=== PATIENT | female | born 1975 | race African-American/Black ===

== ENCOUNTER 2019-06-09 11:23 | Inpatient (IN) | payer OTHER ==
[~2019-06-09] VITALS: Ht 167.6 cm; Wt 68.0 kg
[~2019-06-09 11:23] MED LIST: AMBIEN 5 MG TABL5 M1 PO; DIAZEPAM 10 MG10 M2 OR; DILAUDID 2 MG TA2 MG PO; DOXEPIN 10 MG C10 MG PO; ENOXAPARIN60 MG/0.1 SUBQ; IMITREX 25 MG T25 M1 PO; LASIX 20 MG TAB20 MG PO; OXYCONTIN20 M1 PO; VALIUM5 MG PO; ZANAFLEX4 MG PO
[2019-06-09 11:24] VITALS: BP 112/75
[2019-06-09 12:01] LABS: BASOPHILS 1.2 % (0.0-2.0); EOSINOPHILS 3.2 % (0.0-3.0); HEMATOCRIT 35.1 % (37.0-47.0); HEMOGLOBIN 12.1 gm/dL (12.0-15.0); LYMPHOCYTES 44.5 % (24.0-44.0); MCH 29.3 pg (26.0-34.0); MCHC 34.3 g/dL (28.0-37.0); MCV 85.4 fL (80.0-100.0); MONOCYTES 5.6 % (1.0-8.0); PLATELET COUNT 308 thou/uL (150-400); POLYS 45.5 % (36.0-66.0); RBC 4.11 mil/uL (4.20-5.00); RDW 15.1 % (10.5-14.5); WBC 4.3 thou/uL (4.0-11.0)
[2019-06-09 12:25] LABS: ALBUMIN 4.2 g/dL (3.4-5.0); CALCIUM 9.1 mg/dL (8.5-10.1); TOTAL BILIRUBIN 0.4 mg/dL (<0.1-1.0); TOTAL PROTEIN 8.3 g/dL (6.4-8.2)
[2019-06-09 12:28] LABS: POTASSIUM 2.9 mmol/L (3.5-5.1)
[2019-06-09 12:46] LABS: URINE BILIRUBIN NEGATIVE (Negative); URINE BLOOD TRACE (Negative); URINE CLARITY SL CLOUDY; URINE COLOR YELLOW; URINE GLUCOSE-RANDOM* NEGATIVE (Negative); URINE KETONES NEGATIVE (Negative); URINE LEUKOCYTES NEGATIVE (Negative); URINE NITRITE NEGATIVE (Negative); URINE PROTEIN (DIPSTICK) 1+ (Negative); URINE SPECIFIC GRAVITY 1.025 (1.005-1.035); URINE UROBILINOGEN 0.2 E.U./dl (0.2-1.0)
[2019-06-09 12:55] LABS: BACTERIA 1-9 Few /HPF (None Seen); CASTS None Seen /LPF (None Seen); CRYSTALS None Seen /LPF (None Seen); SQUAMOUS >10 Many /LPF (0-3); URINE RBC 0-2 Rare /HPF (0-2); URINE WBC 6-15 Few /HPF (0-5)
[2019-06-09 14:49] LABS: AMP/METHAMP Negative (Negative); BARBITURATES Negative (Negative); BENZODIAZEPINES POSITIVE (Negative); COCAINE Negative (Negative); METHADONE Negative (Negative); OPIATES POSITIVE (Negative); PCP Negative (Negative)
[2019-06-09 16:15] VITALS: BP 100/55
[2019-06-09 16:34] VITALS: BP 100/55
--- NOTE | 2019-06-09 17:28 | NUR ---
ADM PT CAME IN FROM ER. PT ORIENTED TO ROOM. ISO CDIFF INITIATED. PT HAVING NAUSEA, LOOSEE GREENISH STOOL. WILL CONTINUE TO MONITOR.
[2019-06-09] MEDS ORDERED: RESTORIL15 MG PO (18:22)
[2019-06-09] MEDS ORDERED: OMEPRAZOLE 20 M20 M1 PO (18:23)
[2019-06-09 22:05] VITALS: BP 108/72
--- NOTE | 2019-06-10 05:02 | NUR ---
progress pt not progressing, continues to have bouts of emesis and watery diarrhea. emesis is clear watery fluid and stools are watery clear with a greenish color. unable to tolerate prep. allergic to most antiemetics has po phenergran but was afraid to take it. she did take it but vomited it right back up. taking iv morphine with slight effect continues to rate pain a 7 to 10. unable to tolerate po potassium Analy ARCHER contacted and added 4o meq's of kcl to her ivf's. infusing without difficulty. 72 hour stool collection has begun. continue poc.
[2019-06-10 05:19] LABS: ABSOLUTE NEUTROPHILS 4.7 thou/uL (1.4-8.2); BASOPHILS 0.1 % (0.0-2.0); HEMATOCRIT 30.2 % (37.0-47.0); LYMPHOCYTES 11.5 % (24.0-44.0); MCH 28.9 pg (26.0-34.0); MCHC 33.2 g/dL (28.0-37.0); MCV 86.9 fL (80.0-100.0); MONOCYTES 2.3 % (1.0-8.0); PLATELET COUNT 242 thou/uL (150-400); POLYS 86.1 % (36.0-66.0); RBC 3.48 mil/uL (4.20-5.00); WBC 5.4 thou/uL (4.0-11.0)
[2019-06-10 05:50] LABS: ALBUMIN 3.3 g/dL (3.4-5.0); CALCIUM 8.3 mg/dL (8.5-10.1); CREATININE 0.7 mg/dL (0.6-1.0); MAGNESIUM 1.7 mg/dL (1.8-2.4); TOTAL BILIRUBIN 0.3 mg/dL (<0.1-1.0); TOTAL PROTEIN 6.8 g/dL (6.4-8.2)
[2019-06-10 05:52] LABS: POTASSIUM 4.5 mmol/L (3.5-5.1)
[2019-06-10 08:11] VITALS: BP 119/58
--- NOTE | 2019-06-10 12:03 | NUR ---
Received awake on bed. On nothing per orem- pt informed and aware; with mouth swabs. On room air. On 72 hour stool collection- with container at bedside, ice refilled frequently. PT with NS + 40meqs KCL at 125cc/hr, infusing wellat L Wrist. Pt for EGD + Colonoscopy today- a/w time, with consent signed. GI lab called, report given- will call back re: time of patient's procedure since she is on isolation- with possibility to do her procedure in PM- pt informed. Complained of pain, due PRN pain meds given as prescribed. Maintained on isolation- ?Cdiff. Pt paraplegic, assisted in ADLs. Pt turned regularly. Able to use bedpan to pass urine and open bowels. As per report from shift commander, pt with episodes of emesis- Approx 200ml- Dr Tripp informed. Pt requested if Protonix could be shifted to IV instead of oral as she may not be able to keep it in due to nauseated feeling- Dr Tripp informed- to call Gi; Dr Benitez informed, may shift to IV. Vital signs stable.
[2019-06-10 17:56] VITALS: BP 107/64
[2019-06-10 19:19] VITALS: BP 99/56
[2019-06-11 00:19] VITALS: BP 96/52
[2019-06-11 04:43] VITALS: BP 99/64
--- NOTE | 2019-06-11 07:51 | NUR ---
progress pt a/o x4 vss, afebrile skin warm dry intact able to repositions self easily lifts up to have bedpan placed vooiding qs and had a few small clear liquid stools, 72 hour collection continues container on ice in br. continues to request morphine for pain refuses phenergran d/t nausea. ivf;s with potassium infusing without difficulty continue poc.
[2019-06-11 08:00] VITALS: BP 98/58
[2019-06-11 15:00] VITALS: BP 130/71
[2019-06-11 19:33] VITALS: BP 95/56
--- NOTE | 2019-06-11 19:45 | NUR ---
ASSUMED CARE OF PATIENT AT 0715, PATIENT ALERT AND ORIENTED X 4. PATIENT ON BED, DUE TO SPINAL CORD INJURY. PATIENT VOMITTED SMALL AMT OF CLEAR SPUTUM, PATIENT HAS ALERGIES TO ALL NAUSEA MEDS, RECEIVED PROTONIX IN AM. PATIENT HAS LEFT UPPER ARM IV WITH NS WITH 40MEQ OF KCL AT 125CC/HR. PATIENT HAS HAD 5 LOOSE STOOLS, COLLECTION OF STOOLS X 72 HRS IN CONTAINER. VSS, WILL CONTINUE TO MONITOR.
--- NOTE | 2019-06-12 04:04 | NUR ---
PROGRESS PT NOT PROGRESSING CONTINUES TO RATE PAIN AN 8 TO 10 TAKING 2 MG MORPHINE Q4HRS, ORDER FOR LORAZEPAM OBTAINED TO TRY THAT FOR NAUSEA PT RESTED 2 HOURS AFTER STATED IT ONLY HELPED FOR A SHORT TIME. MORPHINE CHANGED TO Q6H, OXYCODONE ORDERED BUT PT UNABLE TO KEEP DOWN. WOKE UP CRYING AND MOANING AT 330 AND BECAME QUITE UPSET TO HEAR OF HER MEDICATION CHANGE. I EXPLAINED TO HER THAT WE NEED TO TRY AND FOLLOW THE DOCTORS ORDERS TO SEE IF ANY RELIEF IS OBTAINED AND IF THINGS DIDN'T IMPROVE WE COULD CALL PHYSICIAN FOR MORE INSTRUCTIONS. CONTINUE POC
[2019-06-12 07:46] VITALS: BP 97/60
[2019-06-12 14:52] LABS: HEMATOCRIT 34.7 % (37.0-47.0); HEMOGLOBIN 11.6 gm/dL (12.0-15.0); MCH 28.8 pg (26.0-34.0); MCHC 33.4 g/dL (28.0-37.0); MCV 86.2 fL (80.0-100.0); RBC 4.03 mil/uL (4.20-5.00); RDW 14.6 % (10.5-14.5); WBC 4.6 thou/uL (4.0-11.0)
[2019-06-12 15:11] LABS: ALBUMIN 3.8 g/dL (3.4-5.0); CREATININE 0.7 mg/dL (0.6-1.0); MAGNESIUM 1.7 mg/dL (1.8-2.4); POTASSIUM 4.1 mmol/L (3.5-5.1); TOTAL BILIRUBIN 0.5 mg/dL (<0.1-1.0); TOTAL PROTEIN 7.6 g/dL (6.4-8.2)
[2019-06-12 15:31] VITALS: BP 96/63
--- NOTE | 2019-06-12 17:58 | NUR ---
ASSUMED CARE OF PATIENT AT 0715, PATIENT ALERT AND ORIENTED X 4. PATIENT ON BEDREST, DUE TO SPINAL CORD INJURY. PATIENT CONTINUES TO HAVE PAIN AND NAUSEA, SMALL AMT OF CLEAR EMESIS TODAY. PATIENT FEELS HER ABDOMEN IS MORE DISTENDED TODAY, BUT IS TENDER TO TOUCH. PAGED DR KAUR IN REGARD TO PAIN MEDS, WHICH WERE CHANGED TO EVERY 6 HRS/PRN. DR KAUR ORDERED LABS AND KUB DUE TO ABDOMEN PAIN. PATIENT RECEIVED LORAZEPAM 1 MG IV X 1 THIS SHIFT. MORPHINE 2 MG IV GIVEN X 2 THIS SHIFT, WITH NO RELIEF STATES THE PATIENT. PATIENT CONTINUES TO NOT EAT OR DRINK LIQUIDS, ONLY ICE WATER WITH SWABS. PATIENT HAS LEFT UPPER ARM IV WITH IV FLUIDS AT 125CC/HR. PATIENT CONTINUES TO HAVE LOOSE STOOLS, AND WE ARE STILL COLLECTING STOOL SPECIMEN IN CONTAINER. WILL CONTINUE TO MONITOR.
[2019-06-12 19:35] VITALS: BP 95/55
[2019-06-13 05:55] LABS: CALCIUM 8.9 mg/dL (8.5-10.1); CREATININE 0.7 mg/dL (0.6-1.0); MAGNESIUM 1.8 mg/dL (1.8-2.4); POTASSIUM 4.6 mmol/L (3.5-5.1)
[2019-06-13 05:58] LABS: HEMATOCRIT 32.2 % (37.0-47.0); HEMOGLOBIN 10.8 gm/dL (12.0-15.0); MCH 29.1 pg (26.0-34.0); MCHC 33.6 g/dL (28.0-37.0); MCV 86.5 fL (80.0-100.0); RBC 3.72 mil/uL (4.20-5.00); RDW 14.3 % (10.5-14.5); WBC 4.7 thou/uL (4.0-11.0)
[2019-06-13 07:41] VITALS: BP 99/60
--- NOTE | 2019-06-13 08:57 | NUR ---
PROGRESS PT CONTINUES TO HAVE NAUSEA AND VOMITING EMESIS IS WATERY AND CLEAR NO STOMACH CONTENTS NOTED, PT HAD A PIECE OF WATERMELON AND VOMITED IT UP IT WAS INTACT LOOKED UNCHEWEDIN SMALL SQUARE SHAPES. CONTINUES TO RATE PAIN AN 8 TO 10 OR HIGHER TAKING MORPHINE Q6HRS REFUSES ORAL MEDS D/T NAUSEA AND VOMITING. STILL HAVING FREQUENT WATERY YELLOW STOOLS STILL COLLECTING FOR THE 72 HOUR STOOL COLLECTION LAB TEST. PT ABLE TO REPOSITION SELF AND RAISE HIPS TO ALLOW BEDPAN PLACEMENT. REPORTS AREAS OF NUMBNESS ON BUTTOCKS AND LEGS BUT HAS GOOD MUSCLE TONE AND MOVEMENT. SKIN C/D/I ANUS IS SORE FROM STOOLING BARRIER CREAM APPLIED. IVF'S CONTINUE PT VOIDING QS. NOT PROGRESSING TOWARDS GOALS CONTINUE TO MONITOR.
--- NOTE | 2019-06-13 12:30 | NUR ---
met with patient and discussed dc planning ?hh care. Patient reports para and uses wc at home. All needs on one level. Her children ages 20/s to 11 years old home for summer and assist with needs. She reports when they return to school she can assist herself with adls and they have a system. Patient anticipates no dc needs. Denies need for HH care. Anticipate home no needs. She does not want MRI that may be orderded as she is to f/u with outpatient pain clinic who already has outpatient MRI ordered. Updated hospitalist.
[2019-06-13 14:52] VITALS: BP 104/67
[2019-06-13 16:23] VITALS: BP 104/67
[2019-06-13] MEDS ORDERED: LEVSIN0.125 MG PO (16:27)
--- NOTE | 2019-06-13 22:35 | NUR ---
PT LEFT THE FLOOR AROUND 2039. NO S/S ACUTE DISTRESS NOTED OR REPORTED UPON DEPARTURE. FAMILY AT BEDSIDE AND P/U VIA PRIVATE VEHICLE.
--- NOTE | 2019-06-14 16:06 | PATH ---
[facility] [place] [address] PATHOLOGY RPT PROCEDURE Name: JUAN WALL Room #: 453-P DIS IN M.R.#: [id number] ������������������ Admission: 06/09/19 ������������������ Date of : 75 Discharge: 06/13/19 Report #: [id number] Path Case #: [id number] [facility] Accession Number: [id number] . 01 Material submitted: . PART A: small bowel - SMALL BOWEL BX PART B: colon - R SIDED COLON BIOPSIES. Modifiers: right PART C: colon - L SIDED COLON BIOPSIES. Modifiers: left . 01 Clinical history: . Nausea, vomiting, abdominal pain, diarrhea, normal EGD, normal colon, hemorrhoids A. Rule out celiac B / C. Rule out microscopic infection or inflammatory colitis . 02 Diagnosis: A. Small bowel mucosa, rule out celiac, endoscopic biopsy: - No diagnostic abnormalities present. - Negative for villous blunting or increase in intraepithelial lymphocytes. . B. Large intestinal mucosa, right sided colon, rule out microscopic colitis, endoscopic biopsy: - Nonspecific changes. - Rare pigmented macrophages within lamina propria, compatible with melanosis coli. - Focal acute cryptitis present, see comment. - Negative for microscopic colitis. - Negative for dysplasia. . C. Large intestinal mucosa, left sided colon, rule out microscopic colitis, endoscopic biopsy: - Reactive/regenerative hyperplastic changes. - Negative for active cryptitis. - Negative for microscopic colitis. - Negative for dysplasia. (IUV:pit; 06/14/2019) QTP/06/14/2019 . 02 Comment: Sections of the colonic mucosa designated "right sided colon" show focal cryptitis, and a moderately cellular lamina propria composed predominantly of lymphocytes and plasma cells and occasional eosinophils. Surface ulceration is not identified. There are no crypt abscesses, granulomas or viral inclusions. The process affects all the fragments with a similar intensity. Given the description, the differential diagnosis includes focal acute self-limited episode of colitis, medication induced colitis [address] [address] PATHOLOGY RPT PROCEDURE Name: JUAN WALL Room #: 453-P [facility] IN M.R.#: [id number] ������������������ Admission: 06/09/19 ������������������ Date of : 75 Discharge: 06/13/19 Report #: [id number] Path Case #: [id number] including laxative use, as well as acute focal diverticulitis. Please correlate with clinical as well as endoscopic findings. (IUV:pit; 06/14/2019) . 02 Electronically signed: . Reina Corea MD, Pathologist NPI- [id number] . 01 Gross description: . A. The specimen is received in formalin, labeled "[place], BX of small bowel, rule out celiac", are few, irregular fragments of gonzales soft tissue measuring 0.5 x 0.5 x 0.2 cm in aggregate. Entirely submitted in A1. . B. The specimen is received in formalin, labeled "Saulsberry, Yahirisha, right side colon biopsies", are few, irregular fragments of gonzales soft tissue measuring 0.7 x 0.5 x 0.1 cm in aggregate. Entirely submitted in B1. . C. The specimen is received in formalin, labeled "Saulsberry, Shanisha, left sided colon biopsies", are few, irregular fragments of gonzales soft tissue measuring 0.5 x 0.5 x 0.1 cm in aggregate. Entirely submitted in C1. ([facility]; 06/13/2019) SHS/SHS . 02 Pathologist provided ICD-10: R11.2, R10.9, R19.7, K64.9 . 02 CPT . 096437, 298257, 106533 Specimen Comment: A courtesy copy of this report has been sent to Specimen Comment: [phone], . Specimen Comment: Report sent to / DR KAUR Performed at: [address], [place], [place] [id number] MD Markus Haile MD Phone: [phone] Performed at: [address] [facility] [id number] MD Reina Corea MD Phone: [phone]
== END 2019-06-13 20:40 | disposition home or self-care (01) | DRG 392 ==
LOC: ER 11:23 → EROBS 15:16 → 4W 15:16
PROVIDERS: Emergency Medicine; Nurse Practitioner; Physician Assistant; ADMIT Internal Medicine
DX: A08.4 Viral intestinal infection, unspecified (principal); K92.1 Melena; K86.1 Other chronic pancreatitis; G43.909 Migraine, unspecified, not intractable, without status migrainosus; T14.8XXA Other injury of unspecified body region, initial encounter; R10.9 Unspecified abdominal pain; X58.XXXA Exposure to other specified factors, initial encounter; E86.0 Dehydration; K59.03 Drug induced constipation; E87.6 Hypokalemia; T40.2X5A Adverse effect of other opioids, initial encounter; G89.29 Other chronic pain; K64.8 Other hemorrhoids; E66.9 Obesity, unspecified; Z88.8 Allergy status to other drugs, medicaments and biological substances; Z88.5 Allergy status to narcotic agent; Z88.4 Allergy status to anesthetic agent; Z90.49 Acquired absence of other specified parts of digestive tract; Y93.89 Activity, other specified; Z79.891 Long term (current) use of opiate analgesic; Y92.89 Other specified places as the place of occurrence of the external cause; Y99.8 Other external cause status; Z68.24 Body mass index [BMI] 24.0-24.9, adult; Z79.899 Other long term (current) drug therapy
CPT/HCPCS: 10040; 62110; 62900; 70005

== ENCOUNTER 2020-01-12 10:26 | Day surgery (SDC) | payer OTHER ==
[~2020-01-12 10:26] MED LIST changes: +LEVSIN0.125 MG PO; +OMEPRAZOLE 20 M20 M1 PO; +RESTORIL15 MG PO
== END 2020-01-12 12:35 | disposition home or self-care (01) ==
LOC: TBA 10:26 → OR 10:26 → TBA 10:45 → OR 12:35
DX: G89.4 Chronic pain syndrome (principal); M54.9 Dorsalgia, unspecified; M79.4 Hypertrophy of (infrapatellar) fat pad; F41.9 Anxiety disorder, unspecified; Z98.890 Other specified postprocedural states; Z90.49 Acquired absence of other specified parts of digestive tract; Z88.8 Allergy status to other drugs, medicaments and biological substances; Z79.899 Other long term (current) drug therapy
CPT/HCPCS: 50010; 50101

== ENCOUNTER → 2020-04-12 | Day surgery (SDC) | payer OTHER ==
[~2020-04-12] VITALS: Ht 167.6 cm; Wt 60.8 kg
[~2020-04-12] MED LIST changes: +AMBIEN 10 MG TA10 MG PO; +BIOTIN5 MG PO; +DIAZEPAM 2MG TAB2 MG PO; +DILAUDID 4 MG TA4 M1 PO; +DIPHENHIST50 MG PO; +METHOCARBAMOL500 M2 PO; +NEXIUM40 MG PO; +OXYCONTIN15 MG PO; +RESTORIL30 MG PO; +ROBAXIN 750 MG750 MG PO; +SUPER THERAVIT1 EACH PO; +XYZAL5 MG PO
[2020-04-12 13:57] VITALS: BP 103/67
== END | disposition home or self-care (01) ==
LOC: OR 10:40
DX: G89.4 Chronic pain syndrome (principal); M79.2 Neuralgia and neuritis, unspecified; M54.9 Dorsalgia, unspecified; F41.9 Anxiety disorder, unspecified; K21.9 Gastro-esophageal reflux disease without esophagitis; D64.9 Anemia, unspecified; Z98.890 Other specified postprocedural states; Z87.19 Personal history of other diseases of the digestive system; Z79.899 Other long term (current) drug therapy; Z90.49 Acquired absence of other specified parts of digestive tract; Z11.59 Encounter for screening for other viral diseases
CPT/HCPCS: 50010; 50101; 50386; 50417; 56524; 56526; 56528; 57271; 57272; 62110; 62900; 70005

== ENCOUNTER 2020-04-15 14:54 | Inpatient (IN) | payer OTHER ==
[~2020-04-15] VITALS: Ht 167.6 cm; Wt 63.0 kg
--- NOTE | ~2020-04-15 | HC ---
[facility] [place] [address] CONSULTATION Name: JUAN THOMAS Room #: 457-P ADM IN M.R.#: [id number] Admission: 04/15/20 Attend Phys: Antonio Tabares MD Discharge: Date of : 75 Report #: [id number] THIS REPORT FOR: cc: FAM - Family physician unknown DANNA - Family physician unknown Ismael Dumas MD ~ CC: DANNA unknown Antonio Tabares DATE OF SERVICE: 04/17/2020 HISTORY OF PRESENT ILLNESS: This 44-year-old female patient was seen earlier today, which is technically yesterday now since it is past midnight. The patient's consultation was requested for headache. The patient has multiple other issues going on and I will strictly confine myself for the evaluation and management of her headache. She gives a pretty complex history, which is not always very clear. She said she started having a headache in her late teens or early 20s. They were described as migraine headache. The medication she remembers she took was Midrin. She also has been tried on multiple other medications. She continued to have headache. At one time, she was admitted to [facility]. She believes it was October of last year. She said extensive workup was done that time and that workup was unremarkable. I do not have any access to that workup. She tells me that they did not come up with any diagnosis. She continues to have headache. Headache is generalized. She is sitting there with a cloth on her eyes, covering her eyes. She said she is extremely photophobic. That makes the history taking and examination very difficult. When asked whether she has any anxiety, she indicates she has anxiety, but that is not the cause of her headache. It looks like she had a pain pump put in. She said sometimes she is able to move all 4 extremities, sometimes she is not able to, but this is going on for a long time. REVIEW OF SYSTEMS: A 14-point review of systems is positive for pain problems and extensive neurological examination according to her in October at [facility], which according to her, did not reveal any definite diagnosis. That was a relevant 14-point review of system. She also gives multiple other things like that she has a spinal cord injury. She had a sickle cell trait, history of PE, she has a filter. To Emergency Room physician, she told that she has a problem with headache, that it becomes worse when she sits up, but to me, she tells me it is not that much different because she has a severe headache all the time. This was a relevant 14-point review of system. PAST MEDICAL HISTORY: Positive for headache, which is longstanding. FAMILY HISTORY: Unremarkable. [facility] [address] [place] [address] CONSULTATION Name: JUAN THOMAS Room #: 457-P [facility] IN M.R.#: [id number] Admission: 04/15/20 Attend Phys: Antonio Tabares MD Discharge: Date of : 75 Report #: [id number] SOCIAL HISTORY: She does not use alcohol on a regular basis. PHYSICAL EXAMINATION: Her examination was difficult. She is complaining of lot of photophobia, but her speech is intact, but the best I can tell is she can move her eyes in all directions, but she does it in a very unusual way. When I try to examine her, she does give me a service worker helper, but she does it very poorly. Her cardiac examinations appear unremarkable. Respiratory examination appears to be stable. Her blood pressure is 115/76, respiration is 18, pulse is 90, temperature is 99.4. She says the situation about her lower extremity is about the same since her spinal cord injury. IMPRESSION: As far as headache is concerned, when you take the history, it is a longstanding problem. I reviewed her records. She does not have any imaging studies of the brain here. If she did not have it, she needs one. She did have a CT of the spine, which I suspect is to look for the position of the pain pump and any spinal fluid leak and does not look like they found any. I do not know if her pump is compatible with MRI or not. We need to talk to Dr. Loving in the morning. She does appear to have significant amount of psychological overlay, but that has been present for long time and we need to make sure she does not have any other pathology. RECOMMENDATIONS: I will suggest doing some imaging study of the brain. I will either suggest doing an MRI or a CT scan. I will talk to Dr. Loving in the morning to see if she has any of those studies done as an outpatient and if the pump is compatible with MRI. Otherwise, we can do the CT scan in this patient. We will try to get the record from [facility]. Main management will be to evaluate the patient for other pathology. If evaluation for spinal fluid leak is desired, that is pretty difficult thing to localize, but MRI will be a better test if spinal fluid leak is suspected and even that is not very sensitive. Thank you very much for this referral and we will follow this patient along with you and talk to other consultants in the morning. By: [id number] Ismael Dumas MD /nt
[~2020-04-15 14:54] MED LIST changes: -BIOTIN5 MG PO; -METHOCARBAMOL500 M2 PO; -SUPER THERAVIT1 EACH PO
[2020-04-15 14:57] VITALS: BP 110/67
[2020-04-15 16:47] LABS: ABSOLUTE NEUTROPHILS 4.5 thou/uL (1.4-8.2); BASOPHILS 0.7 % (0.0-2.0); EOSINOPHILS 2.5 % (0.0-3.0); HEMATOCRIT 32.2 % (37.0-47.0); LYMPHOCYTES 19.8 % (24.0-44.0); MCH 30.5 pg (26.0-34.0); MCHC 34.1 g/dL (28.0-37.0); MCV 89.5 fL (80.0-100.0); MONOCYTES 6.1 % (1.0-8.0); PLATELET COUNT 312 thou/uL (150-400); POLYS 70.9 % (36.0-66.0); WBC 6.3 thou/uL (4.0-11.0)
[2020-04-15 16:55] LABS: ANION GAP 3 mmol/L (7-16); BUN 8 mg/dL (7-18); CALCIUM 8.8 mg/dL (8.5-10.1); CHLORIDE 100 mmol/L (98-107); CO2 33 mmol/L (21-32); CREATININE 0.8 mg/dL (0.6-1.0); GLUCOSE 79 mg/dL (74-106); POTASSIUM 3.4 mmol/L (3.5-5.1); SODIUM 136 mmol/L (136-145)
[2020-04-15 17:05] LABS: ALBUMIN 3.3 g/dL (3.4-5.0); DIRECT BILIRUBIN < 0.1 mg/dL (<0.1-0.2); LIPASE 301 U/L (73-393); SGOT 11 U/L (15-37); SGPT 14 U/L (30-65); TOTAL BILIRUBIN 0.6 mg/dL (0.2-1.0); TOTAL PROTEIN 7.3 g/dL (6.4-8.2); TROPONIN-I <0.06 ng/mL (<0.06)
[2020-04-15 17:08] LABS: APTT 25.7 Seconds (24.5-32.8); PROTIME 10.2 Seconds (9.3-11.4)
--- NOTE | 2020-04-15 22:06 | NUR ---
ATTEMPTED TO CALL REPORT, NURSE NOT AVAILABLE
[2020-04-15 22:35] VITALS: BP 97/73
[2020-04-15 23:04] VITALS: BP 124/74
[2020-04-16] MEDS ORDERED: METHOCARBAMOL500 M2 PO (05:05)
[2020-04-16 05:30] LABS: HEMATOCRIT 25.7 % (37.0-47.0); MCH 30.6 pg (26.0-34.0); MCV 90.2 fL (80.0-100.0); RBC 2.85 mil/uL (4.20-5.00); RDW 14.7 % (10.5-14.5); WBC 4.9 thou/uL (4.0-11.0)
[2020-04-16 05:33] LABS: CALCIUM 7.9 mg/dL (8.5-10.1); CREATININE 0.6 mg/dL (0.6-1.0); POTASSIUM 3.3 mmol/L (3.5-5.1)
[2020-04-16 05:34] LABS: HEMOGLOBIN 8.7 gm/dL (12.0-15.0)
[2020-04-16] MEDS ORDERED: SUPER THERAVIT1 EACH PO (07:21)
[2020-04-16] MEDS ORDERED: BIOTIN5 MG PO (07:21)
[2020-04-16 08:06] VITALS: BP 91/63
--- NOTE | 2020-04-16 08:24 | EKG ---
[facility] [place] [address] ELECTROCARDIOGRAM REPORT Name: JUAN THOMAS Room #: 457-P ADM IN M.R.#: [id number] Admission: 04/15/20 Attend Phys: Tommie Mclaughlin MD Discharge: Date of : 75 Report #: [id number] THIS REPORT FOR: cc: FAM - Family physician unknown FAM - Family physician unknown Odilon Moe MD [facility] THIS REPORT FOR: //name// [facility] ED Test Date: 2020-04-15 Test Time: 15:01:35 Pat Name: JUAN THOMAS Department: Room: [facility] Gender: F Sticker Machine Operator: MAGDALENA : 1975 Requested By: Rafal Tong Order Number: [id number] MD: Odilon Moe Measurements Intervals [place] Rate: 112 P: 59 DE: 152 QRS: 17 QRSD: 77 T: 28 QT: 342 QTc: 467 Interpretive Statements Sinus tachycardia Nonspecific ST and T wave abnormality Compared to ECG 10/28/2007 12:48:28 ST and T wave abnormality is more pronounced Electronically Signed On 04-16-2020 8:22:29 CDT by Odilon Moe [email or web address] <ELECTRONICALLY SIGNED> By: Odilon Moe MD, [facility] 04/16/20 0822 1501 1501 Odilon Moe MD, [facility] /EPI
--- NOTE | 2020-04-16 10:56 | NUR ---
juanis consulted, chart review. juanis called pt in room she reported not feeling good talk with . juanis called sunny [phone] "on phone call, have to call back and i will be visiting later so can visit you in the room"/sunny, and he hung up.
--- NOTE | 2020-04-16 13:54 | NUR ---
cm unable to visit with pt she resting. juanis spoke with sunny spouse, who requested to talk with for updates, juanis passed on information to with # for MD to call. sunny reported " [facility] in past. live in house with children also. no steps, all on main level. has wheel chair, able to dress and bath her self. has bsc that uses in bath as well. primary dr romana mirza out of [facility]."/ sunny. will cont following as needed for dc needs.
[2020-04-16 15:18] VITALS: BP 131/81
--- NOTE | 2020-04-16 18:23 | NUR ---
PT A&OX4, VSS, C/O HEADACHE. PATIENT HAVING N/V NO DIARRHEA, STOOL SAMPLE STILL NEEDED. IV IN LEFT AC WITH NS RUNNING. NO SIGNS OF DISTRESS. WILL CONTINUE TO MONITOR.
[2020-04-16 21:20] VITALS: BP 105/68
[2020-04-17 04:48] VITALS: BP 135/80
[2020-04-17 09:16] VITALS: BP 122/75
[2020-04-17 11:07] LABS: HEMATOCRIT 27.9 % (37.0-47.0); HEMOGLOBIN 9.6 gm/dL (12.0-15.0); MCH 30.8 pg (26.0-34.0); MCHC 34.3 g/dL (28.0-37.0); MCV 89.7 fL (80.0-100.0); RBC 3.11 mil/uL (4.20-5.00); RDW 14.4 % (10.5-14.5); WBC 4.6 thou/uL (4.0-11.0)
--- NOTE | 2020-04-17 14:36 | NUR ---
CARE TEAM INDICATED THAT PT'S PAIN IS STILL NOT WELL MANAGED. PT'S HH COMPANY [facility] WAS UPDATED ON PT'S PROGRESS. CM TO FOLLOW INDICATED WITH DC PLANNING.
[2020-04-17 14:40] VITALS: BP 116/68
[2020-04-17 19:02] VITALS: BP 115/76
--- NOTE | 2020-04-17 19:54 | NUR ---
Received awake on bed. Due
--- NOTE | 2020-04-17 19:55 | NUR ---
Received awake on bed. Due medications given as prescribed. On clear liquid diet- offered clear liquid menu, pt refused and said that the sound of food makes her sick- Dr Toribio informed and asked if pt can have IV anti emetic. On room air. On heart monitoring- SR-ST; no complaints of chest pain, crushing sensation and heaviness. Pt constantly complaining of headaches- environment kept dark and quiet- PRN pain medications given as prescribed. With nausea and vomiting- offered PRN medications but refused; offered ice chips but refused as well. With NS at 125cc/hr, infusing well L AC; dressing C/D/I. With Hx of SCI, able to use bedpan to pass urine and have a bowel movement. Maintained on isolation due to C.diff, a/w result- checked results- negative, isolation discontinued as per protocol. S/p pain pump insertion at back last 04/12- dressing C/D/I, unable to do dressing change and check underneath the dressing today- operations supervisor 2nd shift nurse informed to check if able; ice packs placed as per pt's request. Pt seen by Dr Tabares this AM, informed re: pt's symptoms and relayed requests. Neuro consult called in, a/w physician's rounds- seem and examined by Dr Dumas this PM. Followed up with Dr Tabares re: IV anti-emetic, said pt is allergic to other possible IV anti emetics, may give Haldol for its anti-emetic effects. Pt became tachycardic this PM, HR 130's-140's- Dr Toribio informed, BP of 130/82- in pain but just gave PRN dilauded; may give Metoprolol PO- given as prescribed. For CT of L and T spine- tolerated well; transferred back to bed. Pt's Bruce updated re: pt's status with pt's permission. Tried to have her dinner but pt said made her more sick. To continue monitoring patient. HR went down to 90's.
[2020-04-18 04:15] VITALS: BP 119/71
[2020-04-18 05:42] LABS: HEMATOCRIT 25.8 % (37.0-47.0); HEMOGLOBIN 8.8 gm/dL (12.0-15.0); MCH 30.5 pg (26.0-34.0); MCHC 34.1 g/dL (28.0-37.0); MCV 89.5 fL (80.0-100.0); RBC 2.88 mil/uL (4.20-5.00); RDW 14.1 % (10.5-14.5); WBC 4.1 thou/uL (4.0-11.0)
--- NOTE | 2020-04-18 06:00 | NUR ---
Pt. rested quietly at short intervals during the night when checked on during frequent rounds. Sh c/o chronic headache and nausea. Pt. has been medicated thorughout the night for these complaints (see emar) with some relief noted. Bed alarm is on.
[2020-04-18 06:03] LABS: CALCIUM 7.7 mg/dL (8.5-10.1); CREATININE 0.6 mg/dL (0.6-1.0); POTASSIUM 3.4 mmol/L (3.5-5.1)
[2020-04-18 07:17] VITALS: BP 120/72
--- NOTE | 2020-04-18 08:20 | EKG ---
[facility] [place] [address] ELECTROCARDIOGRAM REPORT Name: JUAN THOMAS Room #: 457-P ADM IN M.R.#: [id number] Admission: 04/15/20 Attend Phys: Antonio Tabares MD Discharge: Date of : 75 Report #: [id number] THIS REPORT FOR: cc: FAM - Family physician unknown FAM - Family physician unknown Odilon Moe MD [facility] THIS REPORT FOR: //name// [facility] Test Date: 2020-04-17 Test Time: 16:19:56 Pat Name: JUAN THOMAS Department: Room: [facility] Gender: F Branch Service Representative: Amber SEGUNDO : 1975 Requested By: Antonio aTbares Order Number: [id number] MD: Odilon Moe Measurements Intervals [place] Rate: 131 P: 74 MI: 134 QRS: 16 QRSD: 67 T: -90 QT: 284 QTc: 420 Interpretive Statements Sinus tachycardia Nonspecific ST and T wave abnormality Compared to ECG 04/15/2020 15:01:35 No significant changes Electronically Signed On 04-18-2020 8:18:30 CDT by Odilon Moe [email or web address] <ELECTRONICALLY SIGNED> By: Odilon Moe MD, [facility] 04/18/20 0818 1619 1619 Odilon Moe MD, [facility] /EPI
[2020-04-18 14:38] VITALS: BP 119/73
[2020-04-18 19:05] VITALS: BP 117/76
--- NOTE | 2020-04-18 19:39 | NUR ---
PT A&OX4, VSS, PAIN IN HEAD. PAIN MEDICATION GIVEN. PATIENT HAS POOR APPETITE, VOMITED 200ML IF DINNER. PATIENT CONTINUE TO HAVE NAUSEA. NO SIGNS OF DISTRESS, WILL CONTINUE TO MONITOR.
--- NOTE | 2020-04-19 03:58 | NUR ---
Pt. rested quietly at intervals during the night when checked on during frequent rounds. She has had a chronic headache and has been given ivp pain meds (see emar) with some relief of pain noted. Pt. also c/o nausea with about 200 mls of clear colored emesis. She has been medicated for nausea (see emar) with some relief. Dressing to back is dry and intact.
[2020-04-19 05:30] VITALS: BP 132/74
--- NOTE | 2020-04-19 05:30 | NUR ---
Pt. not tolerating po and is on protonix po. Tram ARCHER notified with new orders fo ivp pepcid and dc po protonix.
[2020-04-19 06:01] LABS: HEMOGLOBIN 8.9 gm/dL (12.0-15.0); MCH 30.6 pg (26.0-34.0); MCHC 34.2 g/dL (28.0-37.0); MCV 89.3 fL (80.0-100.0); RBC 2.91 mil/uL (4.20-5.00); WBC 3.8 thou/uL (4.0-11.0)
[2020-04-19 06:26] LABS: CALCIUM 7.8 mg/dL (8.5-10.1); CREATININE 0.6 mg/dL (0.6-1.0); POTASSIUM 3.3 mmol/L (3.5-5.1)
[2020-04-19 07:42] VITALS: BP 125/83
[2020-04-19] MEDS ORDERED: METOPROLOL TART25 MG PO (14:17)
[2020-04-19 14:32] VITALS: BP 125/83
[2020-04-19 14:50] VITALS: BP 125/83
--- NOTE | 2020-04-19 14:51 | NUR ---
CARE TEAM INDICATED THAT PT IS MEDICALLY STABLE TO DC HOME THIS DAY. ORDERS FOR RESUMPTION WERE SENT TO [facility]. PT HAS ALL NEEDED DME AT HOME. NO OTHER CM INTERVENTION INDICATED. CASE CLOSED.
--- NOTE | 2020-04-19 16:23 | NUR ---
Assumed pt care this am, VS stable. Pt uses the bed koenig and is able to reposition herself. Pain pump on her back with dressing clean dry and intact. Pain is managed with medication with partial relief noted. CT of the head completed, DC instructions given, prescriptions sent to the pharmacy of choice bythe pt. POC followed, no signs or verbalizations of distress noted. IV removed.
== END 2020-04-19 16:30 | disposition home health service (06) | DRG 103 ==
LOC: ER 14:54 → 4W 20:26 → EROBS 20:26 → 4S 22:55 → 4W 23:04
PROVIDERS: Emergency Medicine; Nurse Practitioner; ADMIT Hospitalist
DX: G43.909 Migraine, unspecified, not intractable, without status migrainosus (principal); K52.1 Toxic gastroenteritis and colitis; E87.8 Other disorders of electrolyte and fluid balance, not elsewhere classified; K21.9 Gastro-esophageal reflux disease without esophagitis; G44.89 Other headache syndrome; F41.8 Other specified anxiety disorders; F32.9 Major depressive disorder, single episode, unspecified; G47.00 Insomnia, unspecified; D64.9 Anemia, unspecified; T40.605A Adverse effect of unspecified narcotics, initial encounter; Z90.49 Acquired absence of other specified parts of digestive tract; Z86.711 Personal history of pulmonary embolism; Z79.01 Long term (current) use of anticoagulants; Z95.828 Presence of other vascular implants and grafts; Z88.8 Allergy status to other drugs, medicaments and biological substances; Z79.899 Other long term (current) drug therapy; Y92.89 Other specified places as the place of occurrence of the external cause; G89.4 Chronic pain syndrome; K59.09 Other constipation
CPT/HCPCS: 10045

== ENCOUNTER 2020-04-21 21:07 | Inpatient (IN) | payer OTHER ==
[~2020-04-21] VITALS: Ht 167.6 cm; Wt 59.0 kg
[~2020-04-21 21:07] MED LIST changes: +BIOTIN5 MG PO; +METHOCARBAMOL500 M2 PO; +METOPROLOL TART25 MG PO; +SUPER THERAVIT1 EACH PO
[2020-04-21 21:12] VITALS: BP 139/88
[2020-04-21 21:51] LABS: BASOPHILS 0.7 % (0.0-2.0); EOSINOPHILS 1.3 % (0.0-3.0); HEMATOCRIT 32.8 % (37.0-47.0); LYMPHOCYTES 17.4 % (24.0-44.0); MCH 30.4 pg (26.0-34.0); MCHC 34.4 g/dL (28.0-37.0); MCV 88.5 fL (80.0-100.0); MONOCYTES 5.5 % (1.0-8.0); POLYS 75.1 % (36.0-66.0); RBC 3.71 mil/uL (4.20-5.00); RDW 14.7 % (10.5-14.5); WBC 5.4 thou/uL (4.0-11.0)
[2020-04-21 21:52] LABS: HEMOGLOBIN 11.3 gm/dL (12.0-15.0); PLATELET COUNT 412 thou/uL (150-400)
[2020-04-21 22:06] LABS: CALCIUM 8.9 mg/dL (8.5-10.1); CREATININE 0.7 mg/dL (0.6-1.0); POTASSIUM 3.1 mmol/L (3.5-5.1)
[2020-04-21 22:10] LABS: TOTAL BILIRUBIN 0.5 mg/dL (0.2-1.0); TOTAL PROTEIN 8.4 g/dL (6.4-8.2)
[2020-04-21 22:52] LABS: URINE BILIRUBIN NEGATIVE (Negative); URINE BLOOD NEGATIVE (Negative); URINE CLARITY CLEAR; URINE COLOR YELLOW; URINE GLUCOSE-RANDOM* NEGATIVE (Negative); URINE KETONES 2+ (Negative); URINE LEUKOCYTES-REFLEX NEGATIVE (Negative); URINE NITRITE-REFLEX NEGATIVE (Negative); URINE PROTEIN (DIPSTICK) NEGATIVE (Negative); URINE SPECIFIC GRAVITY 1.015 (1.005-1.035); URINE UROBILINOGEN 0.2 E.U./dl (0.2-1.0)
[2020-04-22 01:34] VITALS: BP 125/77
[2020-04-22 02:20] VITALS: BP 129/82
--- NOTE | 2020-04-22 04:32 | NUR ---
ADMISSION ASSESSMENT COMPLETED. PT IS ALERT AND ORIENTED. PT TRANSFERS VIA W/CHAIR, USES BEDPAN. PT HERE WITH PAIN TO BACK, ABDOMEN AND LEGS. I HAVE GIVEN HER 1MG OF DIULADID PRN. PATIENT REPORTS PAIN TO BE ABOVE 10/10. PT SEEMS DROWSY THOUGH AND CAN BARELY STAY AWAKE- SHE TELLS ME SHE DID NOT SLEEP AT ALL LAST NIGHT AND IS TIRED. ANOTHER IV STARTED TO R CHEST AND PATIENT TOLERATED WELL. NO NAUSEA OR VOMITING NOTED SO FAR. VSS.SHE IS ABLE TO TAKE SIPS OF WATER.AT THIS TIME SHE IS RESTING QUIETLY, EYES CLOSED WITH NO SIGNS OF DISTRESS. WILL CONTINUE WITH POC TILL EOS.
[2020-04-22 08:00] VITALS: BP 133/91
[2020-04-22 12:58] VITALS: BP 133/91
--- NOTE | 2020-04-22 15:22 | NUR ---
VSS-AFEBRILE. MEDICATED FOR CHRONIC BACK PAIN, PARTIAL RELIEF NOTED. PAIN PHYSICIAN IN TO SEE PATIENT, ADJUSTED DOSAGE OF DILAUDID VIA PAIN PUMP. REMAINS WEAK ON FEET, ASSIST X 1 TO USE THE RESTROOM. DISCUSSED ALL DC INSTRUCTIONS, VERBALIZED UNDERSTANDING OF ALL MATERIALS DISCUSSED. LEFT UNIT VIA WHEELCHAIR, AND WITH ALL PERSONAL BELONGINGS, TRANSPORTED HOME IN PRIVATE VEHICLE BY SPOUSE.
== END 2020-04-22 15:29 | disposition home or self-care (01) | DRG 392 ==
LOC: ER 21:07 → EROBS 04-22 01:31 → 4S 04-22 02:40
PROVIDERS: Emergency Medicine; ADMIT Internal Medicine; ATTEND Internal Medicine
DX: K52.9 Noninfective gastroenteritis and colitis, unspecified (principal); G82.20 Paraplegia, unspecified; K86.1 Other chronic pancreatitis; M54.9 Dorsalgia, unspecified; G89.4 Chronic pain syndrome; F41.9 Anxiety disorder, unspecified; F32.9 Major depressive disorder, single episode, unspecified; K21.9 Gastro-esophageal reflux disease without esophagitis; G47.00 Insomnia, unspecified; Z99.3 Dependence on wheelchair; Z90.49 Acquired absence of other specified parts of digestive tract; Z86.711 Personal history of pulmonary embolism; Z95.828 Presence of other vascular implants and grafts; Z79.01 Long term (current) use of anticoagulants; Z79.899 Other long term (current) drug therapy; Z88.8 Allergy status to other drugs, medicaments and biological substances; Z95.820 Peripheral vascular angioplasty status with implants and grafts
CPT/HCPCS: 10102

== ENCOUNTER 2020-07-06 09:50 | Emergency (ER) | payer OTHER ==
[~2020-07-06] VITALS: Ht 167.6 cm; Wt 59.0 kg
[2020-07-06 10:28] LABS: URINE BILIRUBIN NEGATIVE (Negative); URINE BLOOD NEGATIVE (Negative); URINE CLARITY SL CLOUDY; URINE COLOR YELLOW; URINE GLUCOSE-RANDOM* NEGATIVE (Negative); URINE KETONES NEGATIVE (Negative); URINE LEUKOCYTES-REFLEX NEGATIVE (Negative); URINE NITRITE-REFLEX NEGATIVE (Negative); URINE PROTEIN (DIPSTICK) NEGATIVE (Negative); URINE SPECIFIC GRAVITY 1.025 (1.005-1.035); URINE UROBILINOGEN 0.2 E.U./dl (0.2-1.0)
[2020-07-06 12:01] LABS: ABSOLUTE NEUTROPHILS 1.8 thou/uL (1.4-8.2); BASOPHILS 1.3 % (0.0-2.0); EOSINOPHILS 1.9 % (0.0-3.0); HEMATOCRIT 32.1 % (37.0-47.0); HEMOGLOBIN 11.2 gm/dL (12.0-15.0); LYMPHOCYTES 41.5 % (24.0-44.0); MCH 31.2 pg (26.0-34.0); MCHC 34.9 g/dL (28.0-37.0); MCV 89.5 fL (80.0-100.0); MONOCYTES 6.5 % (1.0-8.0); PLATELET COUNT 284 thou/uL (150-400); POLYS 48.8 % (36.0-66.0); RBC 3.59 mil/uL (4.20-5.00); RDW 14.1 % (10.5-14.5); WBC 3.7 thou/uL (4.0-11.0)
[2020-07-06 12:11] LABS: CALCIUM 8.6 mg/dL (8.5-10.1); CREATININE 0.7 mg/dL (0.6-1.0); POTASSIUM 3.4 mmol/L (3.5-5.1)
[2020-07-06 12:17] LABS: ALBUMIN 3.8 g/dL (3.4-5.0); TOTAL BILIRUBIN 0.2 mg/dL (0.2-1.0); TOTAL PROTEIN 7.4 g/dL (6.4-8.2)
[2020-07-06] MEDS ORDERED: PHENERGAN 25 MG25 M1 PO (15:22)
[2020-07-06 19:27] VITALS: BP 111/76
== END 2020-07-06 19:27 | disposition home or self-care (01) ==
LOC: ER 09:50
PROVIDERS: Emergency Medicine
DX: R11.2 Nausea with vomiting, unspecified (principal); R19.7 Diarrhea, unspecified; F11.23 Opioid dependence with withdrawal; R10.11 Right upper quadrant pain; K21.9 Gastro-esophageal reflux disease without esophagitis; Z88.8 Allergy status to other drugs, medicaments and biological substances; Z88.5 Allergy status to narcotic agent; Z88.6 Allergy status to analgesic agent; Z88.1 Allergy status to other antibiotic agents; Z88.4 Allergy status to anesthetic agent; Z79.899 Other long term (current) drug therapy; Z90.49 Acquired absence of other specified parts of digestive tract

== ENCOUNTER 2020-07-19 12:44 | Day surgery (SDC) | payer OTHER ==
[~2020-07-19] VITALS: Ht 167.6 cm; Wt 59.9 kg
[~2020-07-19 12:44] MED LIST changes: +CYCLOBENZAPRINE5 MG PO; +PHENERGAN 25 MG25 M1 PO
[2020-07-19 13:43] VITALS: BP 144/87
== END 2020-07-19 16:55 | disposition home or self-care (01) ==
LOC: OR 12:44 → TBA 12:51 → OR 12:56
PROVIDERS: ATTEND Preventive Medicine Occupational Medicine
DX: T85.695A Other mechanical complication of other nervous system device, implant or graft, initial encounter (principal); G89.4 Chronic pain syndrome; M54.5 Low back pain; R10.9 Unspecified abdominal pain; F32.9 Major depressive disorder, single episode, unspecified; G43.909 Migraine, unspecified, not intractable, without status migrainosus; F41.9 Anxiety disorder, unspecified; D64.9 Anemia, unspecified; K21.9 Gastro-esophageal reflux disease without esophagitis; Z98.890 Other specified postprocedural states; Z79.899 Other long term (current) drug therapy; Z90.49 Acquired absence of other specified parts of digestive tract; Z87.19 Personal history of other diseases of the digestive system; Z86.711 Personal history of pulmonary embolism; Z79.01 Long term (current) use of anticoagulants; Z88.8 Allergy status to other drugs, medicaments and biological substances; Z91.041 Radiographic dye allergy status; Z79.891 Long term (current) use of opiate analgesic
CPT/HCPCS: 50010; 50101; 50386; 50417; 56524; 56526; 56528; 62110; 62900; 70005

== ENCOUNTER → 2020-08-10 | Emergency (ER) | payer OTHER ==
[2020-08-10 09:11] VITALS: BP 127/68
== END ==
LOC: ER 08:58
DX: R52 Pain, unspecified (principal); Z53.21 Procedure and treatment not carried out due to patient leaving prior to being seen by health care provider

== ENCOUNTER 2020-08-12 17:34 | Emergency (ER) | payer OTHER ==
[~2020-08-12] VITALS: Ht 167.6 cm; Wt 59.9 kg
[2020-08-12 19:03] LABS: URINE BILIRUBIN NEGATIVE (Negative); URINE BLOOD 3+ (Negative); URINE CLARITY CLEAR; URINE COLOR YELLOW; URINE GLUCOSE-RANDOM* NEGATIVE (Negative); URINE KETONES NEGATIVE (Negative); URINE LEUKOCYTES-REFLEX NEGATIVE (Negative); URINE NITRITE-REFLEX NEGATIVE (Negative); URINE PROTEIN (DIPSTICK) NEGATIVE (Negative); URINE SPECIFIC GRAVITY 1.015 (1.005-1.035); URINE UROBILINOGEN 0.2 E.U./dl (0.2-1.0)
[2020-08-12 19:10] LABS: BACTERIA-REFLEX 1-9 Few /HPF (None Seen); CASTS None Seen /LPF (None Seen); CRYSTALS None Seen /LPF (None Seen); SQUAMOUS 0-3 Few /LPF (0-3); URINE RBC >20 Many /HPF (0-2); URINE WBC-REFLEX 0-5 Rare /HPF (0-5)
[2020-08-12 19:14] LABS: ABSOLUTE NEUTROPHILS 2.4 thou/uL (1.4-8.2); BASOPHILS 0.8 % (0.0-2.0); EOSINOPHILS 3.3 % (0.0-3.0); HEMATOCRIT 30.7 % (37.0-47.0); HEMOGLOBIN 10.3 gm/dL (12.0-15.0); LYMPHOCYTES 31.4 % (24.0-44.0); MCH 30.6 pg (26.0-34.0); MCHC 33.6 g/dL (28.0-37.0); MONOCYTES 5.7 % (1.0-8.0); PLATELET COUNT 246 thou/uL (150-400); POLYS 58.8 % (36.0-66.0); RBC 3.37 mil/uL (4.20-5.00); RDW 14.8 % (10.5-14.5); WBC 4.2 thou/uL (4.0-11.0)
[2020-08-12 19:24] LABS: CALCIUM 8.8 mg/dL (8.5-10.1); CREATININE 0.6 mg/dL (0.6-1.0); POTASSIUM 3.8 mmol/L (3.5-5.1)
[2020-08-12 21:44] VITALS: BP 135/59
== END 2020-08-12 21:45 | disposition home or self-care (01) ==
LOC: ER 17:34
PROVIDERS: Emergency Medicine
DX: S70.01XA Contusion of right hip, initial encounter (principal); S30.1XXA Contusion of abdominal wall, initial encounter; S20.211A Contusion of right front wall of thorax, initial encounter; K59.00 Constipation, unspecified; K21.9 Gastro-esophageal reflux disease without esophagitis; Z90.49 Acquired absence of other specified parts of digestive tract; Z79.899 Other long term (current) drug therapy; Z86.2 Personal history of diseases of the blood and blood-forming organs and certain disorders involving the immune mechanism; Z88.8 Allergy status to other drugs, medicaments and biological substances; W05.0XXA Fall from non-moving wheelchair, initial encounter; Y93.89 Activity, other specified; Y92.89 Other specified places as the place of occurrence of the external cause; Y99.8 Other external cause status

== ENCOUNTER 2020-09-21 15:48 | Emergency (ER) | payer OTHER ==
[~2020-09-21] VITALS: Ht 167.6 cm; Wt 60.3 kg
[2020-09-21 18:36] LABS: CALCIUM 9.5 mg/dL (8.5-10.1); CREATININE 0.9 mg/dL (0.6-1.0); POTASSIUM 3.8 mmol/L (3.5-5.1)
[2020-09-21 18:41] LABS: ALBUMIN 4.3 g/dL (3.4-5.0); DIRECT BILIRUBIN 0.1 mg/dL (<0.1-0.2); TOTAL BILIRUBIN 0.3 mg/dL (0.2-1.0); TOTAL PROTEIN 8.2 g/dL (6.4-8.2)
[2020-09-21 19:03] LABS: ABSOLUTE NEUTROPHILS 2.2 thou/uL (1.4-8.2); BASOPHILS 0.8 % (0.0-2.0); HEMATOCRIT 27.9 % (37.0-47.0); HEMOGLOBIN 9.4 gm/dL (12.0-15.0); LYMPHOCYTES 35.4 % (24.0-44.0); MCH 31.3 pg (26.0-34.0); MCHC 33.7 g/dL (28.0-37.0); MCV 92.9 fL (80.0-100.0); MONOCYTES 7.2 % (1.0-8.0); PLATELET COUNT 232 thou/uL (150-400); POLYS 54.6 % (36.0-66.0); RBC 3.01 mil/uL (4.20-5.00); RDW 13.8 % (10.5-14.5)
[2020-09-21 19:32] LABS: URINE BILIRUBIN NEGATIVE (Negative); URINE BLOOD NEGATIVE (Negative); URINE CLARITY CLEAR; URINE COLOR YELLOW; URINE GLUCOSE-RANDOM* NEGATIVE (Negative); URINE KETONES NEGATIVE (Negative); URINE LEUKOCYTES-REFLEX TRACE (Negative); URINE NITRITE-REFLEX NEGATIVE (Negative); URINE PROTEIN (DIPSTICK) NEGATIVE (Negative); URINE SPECIFIC GRAVITY >= 1.030 (1.005-1.035); URINE UROBILINOGEN 0.2 E.U./dl (0.2-1.0)
[2020-09-21] MEDS ORDERED: NORCO 5-325 TA1 EAC2 PO (19:56)
[2020-09-21] MEDS ORDERED: OMEPRAZOLE40 MG PO (19:56)
[2020-09-21 20:00] VITALS: BP 135/69
[2020-09-21] MEDS ORDERED: PROMS25 WY RECTAL (20:14)
== END 2020-09-21 20:17 | disposition home or self-care (01) ==
LOC: ER 15:48
PROVIDERS: Nurse Practitioner
DX: F11.23 Opioid dependence with withdrawal (principal); R10.84 Generalized abdominal pain; K21.9 Gastro-esophageal reflux disease without esophagitis; Z90.49 Acquired absence of other specified parts of digestive tract; Z79.899 Other long term (current) drug therapy; Z88.8 Allergy status to other drugs, medicaments and biological substances
CPT/HCPCS: 27000

== ENCOUNTER 2021-02-14 12:20 | Emergency (ER) | payer OTHER ==
[~2021-02-14] VITALS: Ht 170.2 cm; Wt 56.7 kg
[~2021-02-14 12:20] MED LIST changes: +NORCO 5-325 TA1 EAC2 PO; +OMEPRAZOLE40 MG PO; +PROMS25 WY RECTAL
[2021-02-14 12:34] VITALS: BP 153/88
--- NOTE | 2021-02-14 12:56 | NUR ---
IV ATTEMPTED. UNABLE TO OBTAIN. WILL CALL IV TEAM
[2021-02-14 13:57] LABS: ABSOLUTE NEUTROPHILS 4.4 thou/uL (1.4-8.2); BASOPHILS 0.4 % (0.0-2.0); EOSINOPHILS 0.9 % (0.0-3.0); HEMATOCRIT 34.1 % (37.0-47.0); HEMOGLOBIN 11.3 gm/dL (12.0-15.0); LYMPHOCYTES 16.7 % (24.0-44.0); MCH 30.1 pg (26.0-34.0); MCHC 33.2 g/dL (28.0-37.0); MCV 90.8 fL (80.0-100.0); MONOCYTES 5.6 % (1.0-8.0); PLATELET COUNT 320 thou/uL (150-400); POLYS 76.4 % (36.0-66.0); RBC 3.76 mil/uL (4.20-5.00); WBC 5.8 thou/uL (4.0-11.0)
[2021-02-14 14:12] LABS: ALBUMIN 4.1 g/dL (3.4-5.0); CALCIUM 9.9 mg/dL (8.5-10.1); TOTAL BILIRUBIN 0.5 mg/dL (0.2-1.0); TOTAL PROTEIN 8.4 g/dL (6.4-8.2)
[2021-02-14 14:35] LABS: POTASSIUM 2.5 mmol/L (3.5-5.1)
--- NOTE | 2021-02-14 16:16 | EKG ---
[address] [address] [facility] [place] [address] ELECTROCARDIOGRAM REPORT Name: JUAN THOMAS Room #: [facility]#: [id number] Admission: 02/14/21 Attend Phys: Discharge: Date of : 75 Report #: [id number] [facility] ED Test Date: 2021-02-14 Test Time: 14:07:33 Pat Name: JUAN THOMAS Department: Room: Gender: F Harness Mender: millie : 1975 Requested By: Tello Gordillo Order Number: [id number] MD: Shan Hicks Measurements Intervals [place] Rate: 75 P: 48 OK: 126 QRS: 20 QRSD: 75 T: 266 QT: 440 QTc: 492 Interpretive Statements Sinus rhythm Atrial premature complex Ischemic changes infero-lateral leads Nonspecific repol abnormality, diffuse leads Borderline prolonged QT interval Compared to ECG 04/17/2020 16:19:56 Atrial premature complex(es) now present Early repolarization now present Sinus tachycardia no longer present ST (T wave) deviation no longer present Electronically Signed On 02-14-2021 16:15:56 CDT by Shan Hicks [email or web address] <ELECTRONICALLY SIGNED> By: Shan Hicks MD, FAC 02/14/21 1615 [id number] [id number] Shan Hicks MD, [facility] /EPI
[2021-02-14 19:04] VITALS: BP 103/53
== END 2021-02-14 19:19 | disposition short-term general hospital (02) ==
LOC: ER 12:20 → EROBS 16:49 → ER 16:49
PROVIDERS: Physician Assistant
DX: E87.6 Hypokalemia (principal); R11.2 Nausea with vomiting, unspecified; K86.1 Other chronic pancreatitis; G82.20 Paraplegia, unspecified; Z86.718 Personal history of other venous thrombosis and embolism; F41.9 Anxiety disorder, unspecified; F32.9 Major depressive disorder, single episode, unspecified; Z90.49 Acquired absence of other specified parts of digestive tract; Z86.711 Personal history of pulmonary embolism; K21.9 Gastro-esophageal reflux disease without esophagitis; Z79.899 Other long term (current) drug therapy; Z88.8 Allergy status to other drugs, medicaments and biological substances; Z91.041 Radiographic dye allergy status; Z88.6 Allergy status to analgesic agent; Z88.4 Allergy status to anesthetic agent; G89.29 Other chronic pain